=== PATIENT | male | born 1930 | race Caucasian/White ===

== ENCOUNTER → 2016-06-13 | Outpatient (CLI) | payer MEDICARE ==
[~2016-06-13] VITALS: Ht 165.1 cm; Wt 62.7 kg
[~2016-06-13] MED LIST: FLUT1INH INH; INSULIN HUMAN REGULAR 1,000 UNITS/10 ML VIAL SQ PRN; LACTATED RINGER'S 1000 ML IV SCH; LATA0.002 EACH EYE; METOPROLOL TARTRATE 25 MG TAB PO PRN; OMEP20TA PO; PROPOFOL 200 MG/20 ML AMP IV ONE; SODIUM CHLORID 0.9% 500 ML IV SCH; UMEC1INH INH
[2016-06-13 10:21] VITALS: BP 150/74; PULSE 84; RESP 18; TEMP 97.9; O2SAT 97
[2016-06-13 11:43] VITALS: TEMP 97.6
--- NOTE | 2016-06-13 11:47 | GIPROC ---
[facility] [address] [facility]. [facility], [id number] EGD WITH DILATION PROCEDURE REPORT EXAM DATE: 06/13/2016 PATIENT NAME: Brooks Gutierrez MR#: [id number] BIRTHDATE: 1930 ATTENDING: Korin Brian MD ORDER #: [id number] [employer]: Ara Guzman and Savage Bello STATUS: outpatient INDICATIONS: The patient is a 85 yr old male here for an EGD with dilation due to dysphagia PROCEDURE PERFORMED: EGD w/ biopsy EGD w/ dilation of esophagus via guidewire MEDICATIONS: None and Per Anesthesia. TOPICAL ANESTHETIC: none CONSENT: The patient understands the risks and benefits of the procedure and understands that these risks include, but are not limited to: sedation, allergic reaction, infection, perforation and/or bleeding. Alternative means of evaluation and treatment include, among others: physical exam, x-rays, and/or surgical intervention. The patient elects to proceed with this endoscopic procedure. medical equipment was checked for proper function. Hand hygiene and appropriate measures for infection prevention was taken. After the risks, benefits and alternatives of the procedure were thoroughly explained, Informed consent was verified, confirmed and timeout was successfully executed by the treatment team. The patient was anesthetized with topical anesthesia and the Wyleax EG-[id number] endoscope was introduced through the mouth and advanced to the second portion of the duodenum. The instrument was slowly withdrawn as the mucosa was fully examined. Gastritis antrum-biopsy stricture distal esophagus -biopsy. Dilation was performed at gastroesophageal junction. DILATOR: SIZE(S): RESISTANCE: HEME: APPEARANCE: Dilator: Savary over guidewire Size(s): 12.8, 14, 15, 16 COMMENT: Retroflexed views revealed a hiatal hernia ADVERSE EVENTS: There were no complications. IMPRESSIONS: 1. Gastritis antrum-biopsy stricture distal esophagus -biopsy 2. Retroflexed views revealed a hiatal hernia RECOMMENDATIONS: 1. Await biopsy results. Biopsy results will not be ready for 7-10 days. If you don't hear from us in two weeks, call our office for biopsy results. 2. Anti-reflux regimen 3. Continue PPI 4. Start PPI 5. Dilatations PRN REPEAT EXAM: EGD pending biopsy results Korin Brian MD eSigned: Korin Brian MD 06/13/2016 11:46 AM cc: Herminio Alonso M.D. PATIENT NAME: Brooks Gutierrez MR#: [id number]
[2016-06-13 11:55] VITALS: BP 135/75; PULSE 76; RESP 16; O2SAT 95
--- NOTE | 2016-06-14 10:57 | EKG ---
Date Performed: 06/13/2016 Time Performed: 10:39:45 PTAGE: 85 years EKG: Sinus rhythm INFERIOR MYOCARDIAL INFARCTION , PROBABLY OLD ABNORMAL ECG PREVIOUS TRACING : 09/27/2013 11.41 DOCTOR: Steve Card Interpretating Date/Time 06/14/2016 10:55:21
== END ==
LOC: HEND 09:06
PROVIDERS: ATTEND Internal Medicine Gastroenterology
DX: K22.2 Esophageal obstruction (principal); R13.10 Dysphagia, unspecified; K44.9 Diaphragmatic hernia without obstruction or gangrene; K29.50 Unspecified chronic gastritis without bleeding; R94.31 Abnormal electrocardiogram [ECG] [EKG]
CPT/HCPCS: 00740; 43239; 43248; 88305; 88312; 93005; C1769; J7120